=== PATIENT | female | born 1990 | race Caucasian/White ===

== ENCOUNTER 2019-01-09 15:57 | Inpatient (IN) | payer OTHER ==
[~2019-01-09] VITALS: Ht 167.6 cm; Wt 68.0 kg
[2019-01-09 16:07] VITALS: Ht 167.6 cm; Wt 68.0 kg
[2019-01-09 17:05] LABS: BASOPHIL % 0.5 % (0-2); PLATELET COUNT 215 x10^3mcL (130-400); RED CELL DISTRIBUTION WIDTH 12.1 % (11.5-14.5)
[2019-01-09 17:12] LABS: CALCIUM 8.5 mg/dL (8.5-10.1); CARBON DIOXIDE 25.3 mmol/L (21-32); CHLORIDE SERUM 106 mmol/L (98-107); CREATININE SERUM 0.6 mg/dL (0.6-1.0); GFR1 > 60 mL/min; GLUCOSE SERUM 101 mg/dL (74-106); POTASSIUM SERUM 3.5 mmol/L (3.5-5.1); SODIUM SERUM 140 mmol/L (136-145)
[2019-01-09 17:25] LABS: ALBUMIN 3.8 g/dL (3.4-5.0); ALKALINE PHOSPHATASE 48 U/L (46-116); ALT/SGPT 20 U/L (14-59); AST/SGOT 14 U/L (15-37); BILIRUBIN TOTAL 0.51 mg/dL (0.20-1.00); T4(THYROXINE) 13.3 ug/dL (4.7-13.3); TOTAL PROTEIN, SERUM 6.9 g/dL (6.4-8.2)
[2019-01-09 17:56] LABS: AMPHETAMINE QUAL UR NONE DETECTED (See below)
[2019-01-09] MEDS ORDERED: TOPROL XL25 MG PO (19:23)
[2019-01-09] MEDS ORDERED: PRAZOSIN HYDROCH1 MG PO (19:23)
[2019-01-09 20:31] LABS: microscopic required? NO
[2019-01-09 20:43] LABS: UA SPECIFIC GRAVITY 1.025 (1.005-1.035); urine erythrocyte NEGATIVE (NEGATIVE)
[2019-01-09 20:44] LABS: CHOLESTEROL/HDL RATIO 3.1; PHOSPHOROUS 3.7 mg/dL (2.5-4.9)
[2019-01-09 21:31] VITALS: BP 125/98
[2019-01-10 05:55] VITALS: BP 115/58
[2019-01-10 06:30] LABS: CALCIUM 8.1 mg/dL (8.5-10.1); CARBON DIOXIDE 26.9 mmol/L (21-32); CHLORIDE SERUM 107 mmol/L (98-107); CREATININE SERUM 0.7 mg/dL (0.6-1.0); GFR1 > 60 mL/min; GLUCOSE SERUM 89 mg/dL (74-106); PHOSPHOROUS 3.6 mg/dL (2.5-4.9); SODIUM SERUM 140 mmol/L (136-145)
[2019-01-10 06:45] LABS: BASOPHIL % 0.9 % (0-2); PLATELET COUNT 203 x10^3mcL (130-400); RED CELL DISTRIBUTION WIDTH 12.1 % (11.5-14.5)
[2019-01-10 09:06] VITALS: BP 91/66
[2019-01-10 11:09] VITALS: BP 120/81
== END 2019-01-10 12:15 | disposition home or self-care (01) | DRG 201 ==
LOC: ED 15:57 → DU 20:02
PROVIDERS: Emergency Medicine; ADMIT General Practice
DX: R00.0 Tachycardia, unspecified (principal); F41.9 Anxiety disorder, unspecified; J45.909 Unspecified asthma, uncomplicated; Z90.49 Acquired absence of other specified parts of digestive tract
CPT/HCPCS: 83880; J3490; J7030; Q0092